=== PATIENT | female | born 1945 | race Caucasian/White ===

== ENCOUNTER 2017-12-25 07:30 | Inpatient (IN) ==
[2017-12-18 14:37] LABS: Appearance,Urine CLEAR; Bilirubin,Urine NEG (NEG); Color,Urine COLORLESS; Glucose,Urine (UA) NEGATIVE (NEG); Leukocyte Esterase,Urine NEG /uL (NEG); Protein,Urine NEG (NEG); Specific Gravity,Urine 1.004 (1.000-1.035); Urine Blood NEG mg/dL (<0.03); Urobilinogen,Urine NEG (NEG)
[2017-12-18 15:14] LABS: Basophils # (Auto) 0 K/mcL (0.0-0.3); Basophils % (Auto) 0.5 % (0.0-2.0); Eosinophils # (Auto) 0.1 K/mcL (0.0-0.7); Eosinophils % (Auto) 1.9 % (0.0-7.0); Granulocytes % (Auto) 51.7 % (38.0-78.0); Lymphocytes # (Auto) 2.6 K/mcL (1.5-4.8); Lymphocytes % (Auto) 36.3 % (15.5-49.0); Mean Cell Volume 84.3 fL (80.0-100.0); Mean Corpuscular HGB Conc 34.8 g/dL (31.0-36.0); Mean Corpuscular Hemoglobin 29.3 pg (26.0-34.0); Monocytes # (Auto) 0.7 K/mcL (0.1-0.9); Monocytes % (Auto) 9.6 % (1.0-12.0); Platelet Count 228 K/mcL (140-440); RBC 4.61 M/mcL (4.00-5.20); Red Cell Distribution Width 12.8 % (11.5-14.5)
[2017-12-18 15:28] LABS: Blood Urea Nitrogen 13 mg/dl (8-23)
[~2017-12-25 07:30] MED LIST: CELECOXIB 200 MG CAPSULE PO SCH; KETOROLAC 30 MG, ROPIVACAINE HCL/PF 49.5 ML, EPINEPHrine 0.5 MG, 0.9 % SODIUM CHLORIDE ... IV SCH; PREGABALIN 75 MG CAPSULE PO SCH; ceFAZolin 1 GM VIAL IV SCH; oxyCODONE 10 MG TAB.ER.12H PO SCH
[2017-12-25] MEDS ORDERED: SCOPOLAMINE 1 PATCH PATCH TOPICAL ONE (09:30)
[2017-12-25] MEDS ORDERED: TRANEXAMIC ACID 1,000 MG/10 ML VIAL IV ONE ×2 (09:35→10:48)
[2017-12-25] MEDS ORDERED: BUPIVACAINE W/EPI 0.5% 50 ML VIAL IJ ONE (09:35)
[2017-12-25] MEDS ORDERED: ONDANSETRON 4 MG/2 ML VIAL IV ONE (09:35)
[2017-12-25] MEDS ORDERED: LIDOCAINE HCL/PF 100 MG/5 ML SYRINGE IV ONE (09:35)
[2017-12-25] MEDS ORDERED: KETAMINE 100 MG/ML ML IV ONE (09:35)
[2017-12-25] MEDS ORDERED: MIDAZOLAM 2 MG/2 ML VIAL IV ONE (09:35)
[2017-12-25] MEDS ORDERED: GLYCOPYRROLATE 0.2 MG/ML VIAL IV ONE (09:35)
[2017-12-25] MEDS ORDERED: PROPOFOL 200 MG/20 ML VIAL IV ONE (09:35)
[2017-12-25] MEDS ORDERED: GENTAMICIN SULFATE 800 MG/20 ML VIAL IR ONE (10:02)
[2017-12-25] MEDS ORDERED: MEPERIDINE 25 MG/ML SYRINGE IV PRN (10:42)
[2017-12-25] MEDS ORDERED: ACETAMINOPHEN 1,000 MG/100 ML BOTTLE IV ONE (10:42)
[2017-12-25] MEDS ORDERED: fentaNYL 100 MCG/2 ML VIAL IV PRN (10:42)
[2017-12-25] MEDS ORDERED: METHOCARBAMOL 1,000 MG/10 ML VIAL IV PRN (10:42)
[2017-12-25] MEDS ORDERED: IPRATROPIUM/ALBUTEROL 3 ML AMPUL.NEB NEB PRN (10:42)
[2017-12-25] MEDS ORDERED: PROMETHAZINE 25 MG/ML VIAL IV PRN (10:42)
[2017-12-25] MEDS ORDERED: LACTATED RINGERS 1,000 ML IV SCH (10:45)
[2017-12-25] MEDS ORDERED: HYDROmorphone 2 MG/ML VIAL IV PRN (10:48)
[2017-12-25] MEDS ORDERED: ACETAMINOPHEN 325 MG TABLET PO PRN (10:48)
[2017-12-25] MEDS ORDERED: BENZOCAINE/MENTHOL 1 LOZENGE PO PRN (10:48)
[2017-12-25] MEDS ORDERED: BISACODYL 10 MG SUPP.RECT PR PRN (10:48)
[2017-12-25] MEDS ORDERED: POLYETHYLENE GLYCOL 3350 17 GM PACKET PO PRN (10:48)
[2017-12-25] MEDS ORDERED: MAGNESIUM HYDROXIDE 30 ML ORAL.SUSP PO PRN (10:48)
[2017-12-25] MEDS ORDERED: FLEETS ADULT ENEMA PR PRN (10:48)
--- NOTE | 2017-12-25 10:48 | Brief Operative Note ---
Date of procedure: 12/25/17 Pre-op diagnosis: right knee oa Post-op diagnosis: same Procedure: right total knee arthroplasty Grafts/Implants: Yes Anesthesia: spinal Complications: none Surgeon: Kojo Swain Presto Log Operator: Rachel Daigle Estimated blood loss (cc): 100 Tourniquet Time (Minutes): 44 Specimens Removed/Pathology: none sent Condition: stable Disposition: PACU
--- NOTE | 2017-12-25 11:16 | Operative Note ---
DATE OF OPERATION: 12/25/2017 PREOPERATIVE DIAGNOSIS: Degenerative joint disease, right knee. POSTOPERATIVE DIAGNOSIS: Degenerative joint disease, right knee. PROCEDURE: Right total knee arthroplasty. SURGEON: Elsa Swain M.D. INSTRUCTIONAL TECHNOLOGY FACILITATOR SURGEON: Rachel Daigle PA-C. ANESTHESIA: Spinal with LMA assist. ESTIMATED BLOOD LOSS: 100 mL. COMPLICATIONS: None noted. SPECIMENS REMOVED: None. DRAINS: None. TOURNIQUET TIME: 44 minutes at 300 mmHg. IMPLANTS: DePuy Attune tibial insert fixed bearing posterior stabilized size 5, 5 mm AOX; DePuy Attune patella medialized dome 35 mm AOX; DePuy Attune femoral posterior stabilized size 5, right narrow, cemented; DePuy tibial base fixed bearing size 5, cemented. INDICATIONS: The patient has had a long-standing history of worsening pain in the knee that has failed conservative treatment. Radiographs have confirmed advanced degenerative joint disease. After a long discussion about treatment options, the patient elected to proceed with a knee arthroplasty. The risks and benefits were discussed with the patient in detail including, but not limited to, the risks of anesthesia, problems with the heart or lungs related to anesthesia, infection, compromise or injury to the nerves and blood vessels, deep venous thrombosis, pulmonary embolism, pneumonia, continued pain after surgery, worsening pain or symptoms after surgery, swelling, loss of motion, instability, leg length discrepancy, and need for repeat surgery. DESCRIPTION OF PROCEDURE: The patient was seen in the pre-anesthesia waiting room where all questions were answered and the correct side and site were identified and marked. The patient was transferred to the operating room and administered the anesthetic and given pre-operative antibiotics. A time-out was then called. The extremity was prepped and draped, exsanguinated, and the tourniquet was inflated to 300 mmHg. A midline skin incision was then made with a standard medial parapatellar arthrotomy. Debridement of the menisci, ACL, and PCL was performed followed by balancing releases in the medial lateral plane. We then established intramedullary access to both the femur and tibia in a standard fashion. The femoral guide power was initially placed with the distal femoral guide, pinned into place, and the distal femoral cut was performed and checked with a flat plate. We then turned our attention to the tibia. The intramedullary guide was placed with the proximal tibial cutting block. The block was appropriately positioned off the affected side, varus and valgus was checked with the extra-medullary guide, and the block was pinned into place. The proximal tibial cut was performed and the tibia was prepared for the tibial implant with appropriate rotation. The tibia, femur, and posterior compartment were debrided of osteophytes, loose bodies, and meniscal fragments We then used the gap balancing technique to balance extension with the first two cuts and good balancing was obtained with a 10 millimeter gap block. We turned our attention back to the femur and used the referencing block and implant to size appropriately. Using the gap balancing technique for the flexion space we set our rotation of the femur off the tibial cut. Anesthesia gave the patient 1 gram of Tranexamic Acid via an intravenous route. We placed the 4 in 1 cutting block and made anterior, posterior, and chamfer cuts. Box plasty cuts were then made in a standard fashion for the posterior stabilized prosthesis. We then completed osteophyte release and posterior capsule release from the posterior compartment. Trials were placed and we chose the polyethylene insert thickness that provided the best stability in all planes. With the trials in place, we did a measured resection for a resurfacing patella. We sized the patella and placed the patella trial and performed a lateral facetectomy with the saw and rongeur. Good tracking was obtained. We removed all trials, irrigated and dried all cut surfaces. We cemented the components into place including tibia, femur and patella. We placed a trial liner and held the knee in full extension with the patella compressed while the cement cured. We then removed all excess cement and placed the final polyethylene tibiofemoral component. Irrigation with 3 liters of antibiotic saline was then performed using jet-lavage. We let the tourniquet down and coagulated bleeding vessels. We injected a 100 cubic centimeter volume including Ropivacaine 49.25 cubic centimeters at 5 milligrams per cubic centimeter, Ketorolac 30 milligrams, and Epinephrine 0.5 milligrams into 100 cubic centimeters volume of normal saline. We closed the retinaculum with #2 Stratafix and 0 Vicryl. We closed the subcutaneous tissue and skin in layers out to kevin in the skin. A sterile pressure dressing was applied. All needle and sponge counts were correct. The patient was transferred to the recovery room in stable condition. ALEJO:barrera Job ID: [id number] Doc ID: [id number] Elsa Swain MD
[2017-12-25] MEDS: 0.9 % SODIUM CHLORIDE 1,000 ML IV SCH ×2 (11:55→19:46)
[2017-12-25] MEDS: KETOROLAC 15 MG/ML VIAL IV SCH ×3 (12:57→23:47)
[2017-12-25] MEDS: 0.9 % SODIUM CHLORIDE 10 ML SYRINGE IV SCH ×2 (13:00→20:53)
--- NOTE | 2017-12-25 13:16 | XRay Report ---
CLINICAL INFORMATION: Reason for Exam:Post-Op Total Knee COMPARISON: None. FINDINGS: Total knee prostheses is anatomically aligned. No osseous abnormality. Periarticular gas and soft tissue swelling seen as expected. IMPRESSION: Negative Interpreted and Authenticated by: Kojo Waddell 12/25/17
[2017-12-25] MEDS: HYDROcodone/APAP 10/325MG TABLET PO PRN ×3 (14:34→22:48)
[2017-12-25] MEDS: METHOCARBAMOL 750 MG TABLET PO PRN (14:34)
[2017-12-25] MEDS: ceFAZolin 1 GM VIAL IV SCH (17:59)
[2017-12-25] MEDS: SENNOSIDES 1 TABLET PO SCH (20:53)
[2017-12-25] MEDS: DOCUSATE SODIUM 100 MG CAPSULE PO SCH (20:53)
[2017-12-25] MEDS: ASPIRIN 325 MG ENTERIC COATED TABLET PO SCH (20:53)
[2017-12-25] MEDS: LEVOTHYROXINE SODIUM 112 MCG TABLET PO SCH (20:53)
[2017-12-25] MEDS: ATORVASTATIN 20 MG TABLET PO SCH (20:53)
[2017-12-26] MEDS: ceFAZolin 1 GM VIAL IV SCH (00:55)
[2017-12-26] MEDS: ONDANSETRON 4 MG/2 ML VIAL IV PRN (01:12)
[2017-12-26] MEDS: 0.9 % SODIUM CHLORIDE 1,000 ML IV SCH ×4 (04:00→21:14)
[2017-12-26] MEDS: HYDROcodone/APAP 10/325MG TABLET PO PRN ×2 (04:00→08:48)
[2017-12-26] MEDS: KETOROLAC 15 MG/ML VIAL IV SCH ×4 (05:11→23:35)
[2017-12-26] MEDS: 0.9 % SODIUM CHLORIDE 10 ML SYRINGE IV SCH ×3 (05:11→21:14)
--- NOTE | 2017-12-26 07:35 | Orthopedic Progress Note ---
Subjective Patient information: Note initiated : 12/26/17 at 7:33 am Service Date, if different from initiated Date: [] Patient: Mary Christian 72 y/o F admitted on 12/25/17 for Right Total Knee Arthroplasty. Chief Complaint: [POD #1 s/p right TKA Doing well. Feels unsteady on her feet slightly and would like to stay one more day to keep an eye on this. Otherwise reports minimal pain, no chest pain, SOB, numbness, tingling or calf pain. Ambulating and urinating okay.] Objective Vital signs: Vital Signs Temp Pulse Resp BP Pulse Ox 12/26/17 03:09 98.2 F 61 18 127/79 96 12/26/17 00:00 98.3 F 75 18 132/73 96 12/25/17 20:00 98.1 F 70 18 135/74 98 12/25/17 14:00 75 120/76 99 12/25/17 13:50 69 105/64 99 12/25/17 13:20 72 127/83 95 12/25/17 12:50 74 125/82 95 12/25/17 12:35 75 129/76 97 12/25/17 12:20 73 144/81 97 12/25/17 12:05 97.2 F 78 138/77 99 12/25/17 11:56 97.7 F 80 13 127/61 99 12/25/17 11:41 84 16 116/57 96 12/25/17 11:26 98.4 F 79 14 122/54 100 12/25/17 11:21 81 13 111/49 100 12/25/17 11:16 78 17 96/52 100 12/25/17 11:11 98.1 F 79 12 111/53 95 Intake and Output 12/25/17 12/26/17 12/26/17 21:59 05:59 13:59 Intake Total 2161 / 2161 500 / 500 1000 / 1000 Output Total 800 / 800 350 / 350 Balance 1361 / 1361 150 / 150 1000 / 1000 Intake: IV 981 / 981 1000 / 1000 Sodium Chloride 0.9% 1,000 ml @ 981 / 981 1000 / 1000 125 mls/hr IV .Q8H [facility] Rx#: [id number] Oral 1180 / 1180 500 / 500 Output: Void Amount 800 / 800 150 / 150 Emesis 200 / 200 Other: Meal Dinner Percent of Meal Consumed 50% Feeding Ability Assist with Tray Set Up # Voids 1 Weight 190 lb Intake & Output: Intake & Output 12/25/17 12/26/17 12/26/17 21:59 05:59 13:59 Intake Total 2161 / 2161 500 / 500 1000 / 1000 Output Total 800 / 800 350 / 350 Balance 1361 / 1361 150 / 150 1000 / 1000 Weight 190 lb Intake: IV 981 / 981 1000 / 1000 Sodium Chloride 0.9% 1,000 ml @ 981 / 981 1000 / 1000 125 mls/hr IV .Q8H [facility] Rx#: [id number] Oral 1180 / 1180 500 / 500 Output: Void Amount 800 / 800 150 / 150 Emesis 200 / 200 Other: Meal Dinner Percent of Meal Consumed 50% Feeding Ability Assist with Tray Set Up # Voids 1 Incision: Yes healing, No draining, No red, No swollen, No inflamed, Yes clean and dry Incision clean and dry: Yes Dressing: Yes clean, Yes dry, Yes intact Weight bearing status: as tolerated Neurological exam IM: Yes alert, Yes oriented X3, Yes motor sensory intact, Yes neurovascular intact Extremities exam IM: No calf tenderness, Yes normal capillary refill, No Bryce' s sign, Yes Foot pink and warm, Yes neurovascular intact - Periperhal Pulses Peripheral pulses: 2+: dorsalis pedis (L), dorsalis pedis (R), posterior tibialis (L), posterior tibialis (R) - Labs CBC & BMP: 12/26/17 06:07 12/18/17 13:47 Labs: Orthopedic Labs 12/18/17 13:47 PT 13.1 INR 1.0 12/26/17 12/18/17 06:07 13:47 Hgb 10.8 L 13.5 Hct 33.0 L 38.8 Assessment and Plan (1) Knee osteoarthritis POD #1 s/p right TKA: -d/c to home likely tomorrow 12/27 -pain control ASA 325mg BID x 4 weeks for DVT prophylaxis -WBAT -PT outpatient -staple protocol -f/u in office 10-14 days Status: Acute
--- NOTE | 2017-12-26 07:37 | Discharge Summary ---
Ortho Discharge - TKA - Patient Instructions Diet: Regular Diet Activity: activity as tolerated, weight bearing as tolerated Total Knee Protocol: For Total Knee: Start ROM INA with stationary bike or rocking chair. Work on gaining full extension of knee. Posterior dislocation precautions provided. Hip abductor strengthening and gait training instructions provided. Apply Cryocuff as instructed. Dressing Care: Aquacel Ag - leave on for 5 days Additional Dressing Instructions: kevin Patient Education: Total Knee Replacement (DC) - Problem Maintenance (1) Knee osteoarthritis Status: Acute - Follow Up Plan Follow Up Appointments: Kojo Swain MD [Physician] - 01/07/18 10:40 am Disposition: Home, Self-Care Prognosis: Good Rehab Potential: Good I certify that the patient requires SNF services: No Overall status at discharge: patient is progressing back to baseline - Orders For Discharge Prescriptions: Aspirin [Ecotrin] 325 mg PO BID #60 tab.ec Docusate Sodium [Colace] 100 mg PO BID PRN #30 cap PRN Reason: Constipation HYDROcodone/APAP 10/325MG [[place] 10-325Mg] 1 - 2 tab PO Q4HP PRN #60 tab PRN Reason: Pain Level 3-6 Additional Discharge Orders: Physical Therapy at Discharge - TKA Location: Determined By Patient Walker Location: Determined By Patient
[2017-12-26] MEDS: OMEPRAZOLE 20 MG CAPSULE PO SCH (07:58)
[2017-12-26] MEDS: DOCUSATE SODIUM 100 MG CAPSULE PO SCH ×2 (08:45→21:13)
[2017-12-26] MEDS: ASPIRIN 325 MG ENTERIC COATED TABLET PO SCH ×2 (08:46→21:13)
[2017-12-26] MEDS: HYDROCHLOROTHIAZIDE 25 MG TABLET PO SCH (08:47)
[2017-12-26] MEDS ORDERED: ASPIRIN 81 MG TAB.CHEW PO SCH (09:00)
[2017-12-26] MEDS: ONDANSETRON ODT 4 MG TABLET SL PRN (13:21)
[2017-12-26] MEDS: METHOCARBAMOL 750 MG TABLET PO PRN (13:22)
[2017-12-26] MEDS ORDERED: oxyCODONE HCL 5 MG TABLET PO PRN (18:45)
[2017-12-26] MEDS ORDERED: traMADol 50 MG TABLET PO ONE (19:53)
[2017-12-26] MEDS: traMADol 50 MG TABLET PO PRN ×2 (19:54→23:36)
[2017-12-26] MEDS: ATORVASTATIN 20 MG TABLET PO SCH (21:13)
[2017-12-26] MEDS: SENNOSIDES 1 TABLET PO SCH (21:13)
[2017-12-26] MEDS: LEVOTHYROXINE SODIUM 112 MCG TABLET PO SCH (21:13)
[2017-12-27] MEDS: ONDANSETRON ODT 4 MG TABLET SL PRN (00:15)
[2017-12-27] MEDS: 0.9 % SODIUM CHLORIDE 1,000 ML IV SCH ×3 (01:00→18:52)
[2017-12-27] MEDS: traMADol 50 MG TABLET PO PRN ×3 (04:13→17:55)
[2017-12-27] MEDS: ONDANSETRON 4 MG/2 ML VIAL IV PRN (05:27)
[2017-12-27] MEDS: KETOROLAC 15 MG/ML VIAL IV SCH (05:38)
[2017-12-27] MEDS: 0.9 % SODIUM CHLORIDE 10 ML SYRINGE IV SCH ×3 (06:07→21:03)
[2017-12-27] MEDS: OMEPRAZOLE 20 MG CAPSULE PO SCH (06:55)
[2017-12-27] MEDS ORDERED: SCOPOLAMINE 1 PATCH PATCH TOPICAL ONE (06:57)
[2017-12-27] MEDS ORDERED: 0.9 % SODIUM CHLORIDE 1,000 ML IV ONE (06:58)
--- NOTE | 2017-12-27 06:59 | Orthopedic Progress Note ---
Subjective Patient information: Note initiated : 12/27/17 at 6:58 am Service Date, if different from initiated Date: [] Patient: Mary Christian 72 y/o F admitted on 12/25/17 for Right Total Knee Arthroplasty. Chief Complaint: [] Interval history: doing better today. still somewhat nauseated Objective Vital signs: Vital Signs Temp Pulse Resp BP Pulse Ox 12/27/17 04:00 98.7 F 76 16 144/78 94 12/27/17 00:00 97.9 F 70 16 144/75 95 12/26/17 20:00 97.9 F 68 16 145/75 93 12/26/17 19:16 98 12/26/17 16:00 98.0 F 64 18 131/76 98 12/26/17 12:00 97.1 F 66 18 122/80 92 12/26/17 11:00 66 12/26/17 08:00 97.0 F 67 18 125/83 90 Intake and Output 12/26/17 12/27/17 12/27/17 21:59 05:59 13:59 Intake Total 740 / 740 1550 / 1550 Output Total 420 / 420 1000 / 1000 Balance 320 / 320 550 / 550 Intake: IV 1000 / 1000 Sodium Chloride 0.9% 1,000 ml @ 1000 / 1000 125 mls/hr IV .Q8H [facility] Rx#: [id number] Oral 740 / 740 550 / 550 Output: Void Amount 420 / 420 650 / 650 Emesis 350 / 350 Other: Meal Dinner Nourishment/Supplement Percent of Meal Consumed 50% 100% Feeding Ability Independent Independent # Voids 1 Weight 188 lb 8 oz Intake & Output: Intake & Output 12/26/17 12/27/17 12/27/17 21:59 05:59 13:59 Intake Total 740 / 740 1550 / 1550 Output Total 420 / 420 1000 / 1000 Balance 320 / 320 550 / 550 Weight 188 lb 8 oz Intake: IV 1000 / 1000 Sodium Chloride 0.9% 1,000 ml @ 1000 / 1000 125 mls/hr IV .Q8H [facility] Rx#: [id number] Oral 740 / 740 550 / 550 Output: Void Amount 420 / 420 650 / 650 Emesis 350 / 350 Other: Meal Dinner Nourishment/Supplement Percent of Meal Consumed 50% 100% Feeding Ability Independent Independent # Voids 1 Incision: Yes healing Incision clean and dry: Yes Dressing: Yes clean, Yes dry, Yes intact Weight bearing status: full Neurological exam IM: Yes abnormal gait, Yes alert, Yes oriented X3, Yes motor sensory intact, Yes neurovascular intact Extremities exam IM: No calf tenderness, Yes Foot pink and warm, Yes neurovascular intact - Labs CBC & BMP: 12/27/17 04:39 12/18/17 13:47 Labs: Orthopedic Labs 12/18/17 13:47 PT 13.1 INR 1.0 12/27/17 12/26/17 12/18/17 04:39 06:07 13:47 Hgb 10.2 L 10.8 L 13.5 Hct 30.6 L 33.0 L 38.8 Assessment and Plan (1) Knee osteoarthritis pod 2 s/p tka wbat pain control changed pain meds pt home today or tomorrow when comfortable Status: Acute
[2017-12-27] MEDS: HYDROCHLOROTHIAZIDE 25 MG TABLET PO SCH (08:56)
[2017-12-27] MEDS: ASPIRIN 325 MG ENTERIC COATED TABLET PO SCH ×2 (08:56→21:01)
[2017-12-27] MEDS: DOCUSATE SODIUM 100 MG CAPSULE PO SCH ×2 (08:56→21:01)
[2017-12-27] MEDS: METHOCARBAMOL 750 MG TABLET PO PRN ×2 (10:46→21:01)
[2017-12-27] MEDS: LEVOTHYROXINE SODIUM 112 MCG TABLET PO SCH (21:00)
[2017-12-27] MEDS: SENNOSIDES 1 TABLET PO SCH (21:01)
[2017-12-27] MEDS: ATORVASTATIN 20 MG TABLET PO SCH (21:01)
[2017-12-28] MEDS: traMADol 50 MG TABLET PO PRN ×2 (03:31→09:51)
[2017-12-28] MEDS: 0.9 % SODIUM CHLORIDE 1,000 ML IV SCH (04:37)
[2017-12-28] MEDS: 0.9 % SODIUM CHLORIDE 10 ML SYRINGE IV SCH (04:38)
--- NOTE | 2017-12-28 07:01 | Orthopedic Progress Note ---
Subjective Patient information: Note initiated : 12/28/17 at 6:59 am Service Date, if different from initiated Date: [] Patient: Mary Christian 72 y/o F admitted on 12/25/17 for Right Total Knee Arthroplasty. Chief Complaint: [POD #3 s/p right TKA Doing well today. Pain improved and feeling less dizzy on Tramadol vs opioid pain meds. Ambulating and urinating independently. Denies CP, SOB, nausea, numbness, tingling or calf pain. Ready for discharge today.] Objective Vital signs: Vital Signs Temp Pulse Resp BP Pulse Ox 12/28/17 06:14 98.3 F 18 144/75 94 12/28/17 03:59 99 F 77 18 151/74 92 12/27/17 23:24 98.4 F 80 16 146/77 94 12/27/17 19:29 98.5 F 76 18 143/73 95 12/27/17 16:00 99.0 F H 76 18 117/72 94 12/27/17 12:00 98.7 F 74 16 140/81 92 12/27/17 07:12 98.9 F 71 16 145/87 92 Intake and Output 12/27/17 12/28/17 12/28/17 21:59 05:59 13:59 Intake Total 2440 / 2440 1979 Output Total 2450 / 2450 1250 / 1250 Balance -10 / -10 730 / 730 Intake: IV 1000 / 1000 1000 / 1000 Sodium Chloride 0.9% 1,000 ml @ 1000 / 1000 1000 / 1000 125 mls/hr IV .Q8H [facility] Rx#: [id number] Oral 1440 / 1440 980 / 980 Output: Void Amount 2450 / 2450 1250 / 1250 Other: Meal Dinner Percent of Meal Consumed 25% Feeding Ability Independent # Voids 1 Weight 191 lb Intake & Output: Intake & Output 12/27/17 12/28/17 12/28/17 21:59 05:59 13:59 Intake Total 2440 / 2440 1979 Output Total 2450 / 2450 1250 / 1250 Balance -10 / -10 730 / 730 Weight 191 lb Intake: IV 1000 / 1000 1000 / 1000 Sodium Chloride 0.9% 1,000 ml @ 1000 / 1000 1000 / 1000 125 mls/hr IV .Q8H [facility] Rx#: [id number] Oral 1440 / 1440 980 / 980 Output: Void Amount 2450 / 2450 1250 / 1250 Other: Meal Dinner Percent of Meal Consumed 25% Feeding Ability Independent # Voids 1 Incision: Yes healing, No draining, No red, No swollen, No inflamed, Yes clean and dry Incision clean and dry: Yes Dressing: Yes clean, Yes dry, Yes intact Weight bearing status: as tolerated Range of motion: full AROM b/l ankles/feet. Knee- 0-5 deg ext/70 deg flex Neurological exam IM: Yes alert, Yes oriented X3, Yes motor sensory intact, Yes neurovascular intact Extremities exam IM: No calf tenderness, Yes normal capillary refill, Yes normal inspection, No Bryce's sign, Yes Foot pink and warm, Yes neurovascular intact - Periperhal Pulses Peripheral pulses: 2+: dorsalis pedis (L), dorsalis pedis (R), posterior tibialis (L), posterior tibialis (R) - Labs CBC & BMP: 12/28/17 04:32 12/27/17 07:15 Labs: Orthopedic Labs 12/18/17 13:47 PT 13.1 INR 1.0 12/28/17 12/27/17 12/26/17 04:32 04:39 06:07 Hgb 9.6 L 10.2 L 10.8 L Hct 28.5 L 30.6 L 33.0 L 12/18/17 13:47 Hgb 13.5 Hct 38.8 Assessment and Plan (1) Knee osteoarthritis POD #3 s/p right TKA: -d/c to home today -pain control ASA 325mg BID x 4 weeks for DVT prophylaxis -WBAT -PT outpatient -staple protocol -f/u in office 10-14 days Status: Acute
[2017-12-28] MEDS: OMEPRAZOLE 20 MG CAPSULE PO SCH (07:18)
[2017-12-28] MEDS: ASPIRIN 325 MG ENTERIC COATED TABLET PO SCH (08:09)
[2017-12-28] MEDS: DOCUSATE SODIUM 100 MG CAPSULE PO SCH (08:09)
[2017-12-28] MEDS: HYDROCHLOROTHIAZIDE 25 MG TABLET PO SCH (08:09)
== END 2017-12-28 10:53 | disposition home or self-care (01) | DRG 470 ==
LOC: MEDSUR 07:57
PROVIDERS: ADMIT Orthopaedic Surgery Sports Medicine; ATTEND Orthopaedic Surgery Sports Medicine